=== PATIENT | male | born 2000 | race Hispanic/Latino ===

== ENCOUNTER 2023-04-18 08:49 | Emergency (ER) | payer OTHER ==
[2023-04-18 10:36] LABS: ALT (SGPT) 17 U/L (8-55); AST (SGOT) 21 U/L (5-34); Albumin 4.4 g/dL (3.5-5.0); Alkaline Phosphatase 92 U/L (40-110); Anion Gap 15 mmol/L (10-20); BUN (Urea Nitrogen) 11 mg/dL (8.9-20.6); Bilirubin, Total 0.6 mg/dL (0.2-1.2); Calc. Creatinine Clearance 0 mL/min (70-130); Calcium 9.4 mg/dL (7.8-10.44); Carbon Dioxide 24 mmol/L (22-29); Chloride 103 mmol/L (98-107); Estimated GFR 131; Globulin 3.8 g/dL (2.4-3.5); Glucose 92 mg/dL (70-105); Magnesium 1.9 mg/dL (1.6-2.6); Potassium 4.6 mmol/L (3.5-5.1); Protein, Total 8.2 g/dL (6.0-8.3); Sodium 137 mmol/L (136-145)
[2023-04-18 11:07] LABS: #Eosinphils 0.2 10x3/uL (0.0-0.5); #Monocytes 1.9 10x3/uL (0.0-1.1); #Neutrophils 12.4 10x3/uL (1.5-8.4); %Basophils 0.2 % (0.0-2.0); %Eosinophils 1.2 % (0.0-6.0); %Lymphocytes 16.7 % (18.0-47.0); %Monocytes 10.6 % (0.0-10.0); %Neutrophils 70.9 % (40.0-75.0); Hematocrit 41.4 % (38.8-50.0); Hemoglobin 13.4 g/dL (13.5-17.5); Mean Corpuscular HGB CONC 32.4 g/dL (32.0-36.0); Mean Corpuscular Hemoglobin 26.1 pg (27.0-33.0); Mean Corpuscular Volume 80.5 fl (81.2-95.1); Mean Platelet Volume 9.5 fl (7.4-10.4); Platelet Count 283 10x3/uL (150-450); RBC Distribution Width 14.1 % (11.5-14.5); Red Blood Cell (RBC) Count 5.14 10x6/uL (4.32-5.72); White Blood Cell (WBC) Count 17.5 10x3/uL (3.5-10.5)
[2023-04-18 11:08] LABS: Giant Platelets SLIGHT HPF (0-5); RBC Morph Comment Within Normal Limits
[2023-04-18 11:09] LABS: Platelet Adequacy Comment Appears Adequate
[2023-04-18] MEDS ORDERED: Ampicillin 250 MG VIAL ONE (11:20)
[2023-04-18] MEDS ORDERED: Ampicillin/Sulbactam 3 GM in Sodium Chloride 0.9% 100 ML IVPB SCH (11:30)
[2023-04-18] MEDS ORDERED: Iopamidol 300 61% 100 ML VIAL FS ONE (14:15)
== END 2023-04-18 12:37 | disposition home or self-care (01) ==
LOC: CSHERS 08:49
DX: H60.501 Unspecified acute noninfective otitis externa, right ear (principal); L03.221 Cellulitis of neck
CPT/HCPCS: 70491; 80053; 83735; 85025; 96365; J0290; J0295; J3490; Q9967